=== PATIENT | female | born 1995 | race Caucasian/White ===

== ENCOUNTER 2018-12-10 14:40 | Inpatient (IN) | payer SELFPAY ==
--- NOTE | 2018-12-10 14:50 | PDOC ---
Rapid Medical Evaluation Time Seen by Provider: 12/10/18 14:49 Medical Evaluation: 12/10/18 14:49 I have performed a brief in-person evaluation of this patient. The patient presents with a chief complaint of: abdominal pain Pertinent physical exam findings:stable and in NAD, non-focal I have ordered the following:labs, zofran The patient will proceed to the ED for further evaluation.
[2018-12-10] MEDS ORDERED: SODIUM CHLORIDE 1,000 ML IV STA (14:57)
[2018-12-10] MEDS ORDERED: ONDANSETRON 4 MG/2 ML VIAL IVPUSH ONE ×2 (14:59→17:04)
[2018-12-10] MEDS ORDERED: ONDANSETRON 4 MG/2 ML VIAL ONE ×2 (15:08→17:26)
[2018-12-10] MEDS ORDERED: MORPHINE SULFATE 2 MG/ML VIAL ONE (15:22)
[2018-12-10] MEDS ORDERED: morphine CARPU-JECT 2 MG/1 ML DISP.SYRIN IVPUSH ONE (15:24)
--- NOTE | 2018-12-10 15:24 | PDOC ---
History of Present Illness <Rogelio Padron - Last Filed: 12/10/18 21:33> - History of Present Illness Initial Comments: 23 year old female with PMH of cholecystectomy presenting with left flank pain with radiation to her back worsening over the past few weeks. Also admits to fevers, chills, nausea, and now vomiting. Her pain and symptoms all acutely worsened today. She has surgical history of two C sections. Also admits to dysuria over the same period of time. Denies chest pain, cough, SOB, or other symptoms. 12/10/18 18:44 <Becky Bingham - Last Filed: 12/11/18 20:35> - General Chief Complaint: Pain, Acute Stated Complaint: STOMACH PAIN Time Seen by Provider: 12/10/18 14:49 Past History <Rogelio Padron - Last Filed: 12/10/18 21:33> - Past Medical History COPD: No - Psycho Social/Smoking Cessation Hx Smoking History: Never smoked <Becky Bingham - Last Filed: 12/11/18 20:35> - Past Medical History Allergies/Adverse Reactions: Allergies Allergy/AdvReac Type Severity Reaction Status Date / Time No Known Allergies Allergy Verified 12/10/18 14:52 Home Medications: Ambulatory Orders NK [No Known Home Medication] 12/10/18 Review of Systems - Review of Systems Constitutional: Yes: Chills. No: Diaphoresis, Fever HEENTM: No: Blurred Vision, Tearing Respiratory: No: Cough, Orthopnea, Shortness of Breath Cardiac (ROS): No: Chest Pain, Edema, Irregular Heart Rate ABD/GI: Yes: Nausea, Vomiting. No: Diarrhea : Yes: Burning, Dysuria, Flank Pain. No: Discharge, Incontinence Musculoskeletal: No: Muscle Pain, Muscle Weakness Integumentary: No: Bruising, Erythema, Flushing, Lesions Neurological: No: Headache, Numbness, Paresthesia Hematologic/Lymphatic: No: Anemia, Blood Clots, Easy Bleeding <Becky Bingham - Last Filed: 12/11/18 20:35> *Physical Exam - Vital Signs Last Vital Signs Temp Pulse Resp BP Pulse Ox 98.8 F 105 H 20 115/63 96 12/10/18 18:54 12/10/18 17:39 12/10/18 17:39 12/10/18 17:39 12/10/18 17:39 <Rogelio Padron - Last Filed: 12/10/18 21:33> - Vital Signs Last Vital Signs Temp Pulse Resp BP Pulse Ox 99.7 F H 140 H 16 131/84 97 12/10/18 14:47 12/10/18 14:47 12/10/18 14:47 12/10/18 14:47 12/10/18 14:47 - Physical Exam General Appearance: Yes: Nourished, Appropriately Dressed, Apparent Distress, Mild Distress HEENT: positive: EOMI, KALLI, Normal ENT Inspection, Normal Voice Neck: positive: Trachea midline, Normal Thyroid, Supple. negative: Tender, Rigid Respiratory/Chest: positive: Lungs Clear, Normal Breath Sounds. negative: Chest Tender, Respiratory Distress, Accessory Muscle Use Cardiovascular: positive: Regular Rhythm, Tachycardia. negative: Regular Rate Female Pelvic Exam: positive: normal external exam, cervical os closed, vaginal bleeding. negative: normal adnexa (mild right adnexal tenderness), CMT, discharge, lesions Gastrointestinal/Abdominal: positive: Normal Bowel Sounds, Tender (left mid abdomen/ flank tenderness), Flat, Soft Musculoskeletal: positive: Normal Inspection, CVA Tenderness (left sided). negative: Decreased Range of Motion Extremity: positive: Normal Capillary Refill, Normal Inspection, Normal Range of Motion. negative: Tender Integumentary: positive: Normal Color, Dry, Warm Neurologic: positive: Fully Oriented, Alert, Normal Mood/Affect, Normal Response , Motor Strength 5/5 <Becky Bingham - Last Filed: 12/11/18 20:35> ED Treatment Course - LABORATORY CBC & Chemistry Diagram: 12/10/18 15:35 12/10/18 15:35 - ADDITIONAL ORDERS Additional order review: Laboratory Results 12/10/18 12/10/18 12/10/18 16:02 16:02 15:45 Sodium Potassium Chloride Carbon Dioxide Anion Gap BUN Creatinine Est GFR (CKD-EPI)AfAm Est GFR (CKD-EPI)NonAf Random Glucose Lactic Acid 1.2 Calcium Total Bilirubin AST ALT Alkaline Phosphatase Total Protein Albumin Lipase Serum , Qual Urine Color Yellow Urine Appearance Clear Urine pH 7.5 Ur Specific [place] 1.011 Urine Protein Negative Urine Glucose (UA) Negative Urine Ketones Negative Urine Blood 1+ H Urine Nitrite Negative Urine Bilirubin Negative Urine Urobilinogen 0.2 Ur Leukocyte Esterase Trace Urine WBC (Auto) 0 Urine RBC (Auto) 1 Urine Casts (Auto) 1 U Epithel Cells (Auto) 1.7 Urine Bacteria (Auto) 17.9 Urine HCG, Qual Negative 12/10/18 12/10/18 15:35 15:35 Sodium 141 Potassium 3.8 Chloride 108 H Carbon Dioxide 23 Anion Gap 10 BUN 8.2 Creatinine 0.4 L Est GFR (CKD-EPI)AfAm 170.15 Est GFR (CKD-EPI)NonAf 146.81 Random Glucose 88 Lactic Acid Calcium 9.4 Total Bilirubin 0.2 AST 20 ALT 17 Alkaline Phosphatase 78 Total Protein 8.0 Albumin 4.5 Lipase 108 Serum , Qual Negative Urine Color Urine Appearance Urine pH Ur Specific [place] Urine Protein Urine Glucose (UA) Urine Ketones Urine Blood Urine Nitrite Urine Bilirubin Urine Urobilinogen Ur Leukocyte Esterase Urine WBC (Auto) Urine RBC (Auto) Urine Casts (Auto) U Epithel Cells (Auto) Urine Bacteria (Auto) Urine HCG, Qual 12/10/18 15:35 RBC 4.27 MCV 84.1 MCHC 32.4 RDW 15.2 MPV 8.6 Neutrophils % 46.2 Lymphocytes % 45.0 H Monocytes % 7.2 Eosinophils % 1.4 Basophils % 0.2 - Medications Given in the ED: ED Medications Discontinued Medications Generic Name Dose Route Start Last Admin Trade Name Roberto PRN Reason Stop Dose Admin Acetaminophen 1,000 mg 12/10/18 15:42 12/10/18 15:57 Ofirmev Injection - IVPB 12/10/18 15:43 1,000 mg ONCE ONE Administration Sodium Chloride 1,000 mls @ 1,000 mls/hr 12/10/18 14:57 12/10/18 15:39 Normal Saline - IV 12/10/18 15:56 1,000 mls/hr ASDIR STA Administration Ceftriaxone Sodium 2,000 mg/ 50 mls @ 100 mls/hr 12/10/18 15:42 12/10/18 16: 13 Dextrose IVPB 12/10/18 16:11 100 mls/hr ONCE ONE Administration Ketorolac Tromethamine 15 mg 12/10/18 18:47 12/10/18 19:25 Toradol Injection - IVPUSH 12/10/18 18:48 15 mg ONCE ONE Administration Morphine Sulfate 2 mg 12/10/18 15:24 12/10/18 15:39 Morphine Injection - IVPUSH 12/10/18 15:25 2 mg ONCE ONE Administration Morphine Sulfate 4 mg 12/10/18 17:03 12/10/18 17:38 Morphine Injection - IVPUSH 12/10/18 17:04 4 mg ONCE ONE Administration Ondansetron HCl 4 mg 12/10/18 14:59 12/10/18 15:23 Zofran Injection IVPUSH 12/10/18 15:00 4 mg ONCE ONE Administration Ondansetron HCl 4 mg 12/10/18 17:04 12/10/18 17:38 Zofran Injection IVPUSH 12/10/18 17:05 4 mg ONCE ONE Administration <Rogelio Padron - Last Filed: 12/10/18 21:33> - LABORATORY CBC & Chemistry Diagram: 12/11/18 08:30 12/11/18 08:30 - Medications Given in the ED: ED Medications Discontinued Medications Generic Name Dose Route Start Last Admin Trade Name Roberto PRN Reason Stop Dose Admin Ondansetron HCl 4 mg 12/10/18 14:59 12/10/18 15:23 Zofran Injection IVPUSH 12/10/18 15:00 4 mg ONCE ONE Administration <Becky Bingham - Last Filed: 12/11/18 20:35> Medical Decision Making - Medical Decision Making 23 year old female with diffuse upper left quadrant and flank pain radiating to her back in the setting of two weeks of dysuria. Original though was that this was related to pyelonephritis given location of pain and fever. However, after additional morphine and negative CT, patient's pain was localized to left lower quadrant. Pelvic exam yielded right adnexal tenderness without any discharge, CMT, or other abnormality. TVUS demonstrating small cyst in right adnexa but normal left ovary. Given that patient is still experienced left flank pain, this is still concerning for clinical pyelo. Left adnexa was completely non tender. Will admit patient for clinical pyelonephritis. 12/10/18 19:45 <Becky Bingham - Last Filed: 12/11/18 20:35> Discharge - Discharge Information Problems reviewed: Yes - Admission Yes <Rogelio Padron - Last Filed: 12/10/18 21:33> <Ali,Khameinei - Last Filed: 12/11/18 20:35> - Discharge Information Clinical Impression/Diagnosis: Pyelonephritis
[2018-12-10] MEDS ORDERED: ACETAMINOPHEN 1000 MG/100 ML VIAL (NON FORMULARY) IVPB ONE (15:42)
[2018-12-10] MEDS ORDERED: CEFTRIAXONE 2,000 MG in DEXTROSE 5%-WATER - 50 ML IVPB ONE (15:42)
[2018-12-10] MEDS ORDERED: CEFTRIAXONE 2 GM/100 ML BAG IVPB ONE (15:50)
[2018-12-10] MEDS ORDERED: ACETAMINOPHEN INJECTION 100 ML IVPB ONE (15:50)
[2018-12-10 15:57] LABS: BASO % 0.2 % (0-2.0); EOS % 1.4 % (0-4.5); HEMATOCRIT 35.9 % (32.4-45.2); HEMOGLOBIN 11.6 GM/dL (10.7-15.3); MCH 27.2 pg (25.7-33.7); MCHC 32.4 g/dl (32.0-36.0); MEAN CELL VOLUME 84.1 fl (80-96); MEAN PLT VOLUME 8.6 fl (7.5-11.1); MONO % 7.2 % (3.8-10.2); NEUT % 46.2 % (42.8-82.8); PLATELET COUNT 263 K/MM3 (134-434); RBC 4.27 M/mm3 (3.60-5.2); RDW 15.2 % (11.6-15.6); WHITE BLOOD COUNT 4.9 K/mm3 (4.0-10.0)
--- NOTE | 2018-12-10 16:49 | PDOC ---
Attending Attestation - Resident Resident Name: OtiliaNidhilexus - ED Attending Attestation I have performed the following: I have examined & evaluated the patient, The case was reviewed & discussed with the resident, I agree w/resident's findings & plan, Exceptions are as noted - HPI HPI: 12/10/18 16:47 23-year-old female presents with fever and left sided flank pain for the past several days prior to arrival. Patient denies dysuria or hematuria. - Physicial Exam PE: 12/10/18 16:47 Patient is awake and alert, febrile and tachycardic in moderate distress. Normocephalic, atraumatic; mucous membranes dry; PERRLA, EOMI, no scleral icterus; CTA, RRR, tachycardic; abdomen soft, nontender, nondistended, positive's left CVA tenderness to palpation; - Medical Decision Making 12/10/18 16:48 Patient is a 23-year-old female who presents with signs and symptoms of acute pyelonephritis. Will obtain CBC/CMP/UA/urine cultures of blood culture. Will administer antipyretics, IV fluids and IV antibiotics. Will obtain CT of abdomen pelvis to evaluate for obstructing stone. Will reassess.
[2018-12-10 16:50] LABS: ALBUMIN 4.5 g/dl (3.4-5.0); BILIRUBIN,TOTAL 0.2 mg/dL (0.2-1); BLOOD UREA NITROGEN 8.2 mg/dL (7-18); CALCIUM 9.4 mg/dL (8.5-10.1); CREATININE 0.4 mg/dL (0.55-1.3); POTASSIUM 3.8 mmol/L (3.5-5.1)
[2018-12-10] MEDS ORDERED: morphine CARPU-JECT 4 MG/1 ML DISP.SYRIN IVPUSH ONE (17:03)
[2018-12-10 17:09] LABS: EPI CELLS 1.7 /HPF (0-5/HPF); HYALINE CASTS 1 /lpf (0-8); PH,URINE 7.5 (5.0-8.0); URINE APPEARANCE CLEAR; URINE BACTERIA 17.9 /hpf (NEGATIVE); URINE BILIRUBIN NEGATIVE (NEGATIVE); URINE COLOR YELLOW; URINE GLUCOSE (UA) NEGATIVE (NEGATIVE); URINE KETONE NEGATIVE (NEGATIVE); URINE LEUK ESTERASE TRACE (NEGATIVE); URINE NITRITE NEGATIVE (NEGATIVE); URINE PROTEIN NEGATIVE (NEGATIVE); URINE RBC 1 /hpf (0-4); URINE UROBILINOGEN 0.2 mg/dL (0.2-1.0); URINE WBC 0 /hpf (0-5)
[2018-12-10] MEDS ORDERED: morphine SULFATE 4 MG/ML VIAL ONE (17:26)
[2018-12-10] MEDS ORDERED: KETOROLAC TROMETHAMINE 15 MG/ML VIAL IVPUSH ONE (18:47)
[2018-12-10] MEDS ORDERED: KETOROLAC TROMETHAMINE 15 MG/ML VIAL ONE (19:13)
--- NOTE | 2018-12-10 21:08 | PN ---
Teaching Attending Note Name of Resident: Mary Ann Raygoza ATTENDING PHYSICIAN STATEMENT I saw and evaluated the patient. I reviewed the resident's note and discussed the case with the resident. I agree with the resident's findings and plan as documented. SUBJECTIVE: 23 year old female with PMH of cholecystectomy presenting with left flank pain with radiation to her back worsening over the past few weeks, associated with dysuria. Also admits to fevers, chills, nausea, and now vomiting. Her pain and symptoms all acutely worsened over last 24hrs. She has surgical history of two C sections. Denied any vaginal discharge, OBJECTIVE: Last Vital Signs Temp Pulse Resp BP Pulse Ox 98.8 F 105 H 20 115/63 96 12/10/18 18:54 12/10/18 17:39 12/10/18 17:39 12/10/18 17:39 12/10/18 17:39 gen -nad, nontoxic heent at, moist oral mucosa neck supple cv s1+s2+rrr chest clear ext- no edema Abnormal Lab Results 12/10/18 12/10/18 12/10/18 15:35 15:35 16:02 Lymphocytes % 45.0 H Chloride 108 H Creatinine 0.4 L Urine Blood 1+ H imaging reviewed trans/vag u/s - complex 2.3cm 1.3cm right ovarian cyst ASSESSMENT AND PLAN: Sepsis, tachycardia, low grade fever left flank pain suggestive of pyelonephritis although ct abdomen/pelvis not suggestive, only showed mild right hydronephrosis, right puj obstruction? UA without pyuria and lack of leukocytosis also are not c/w uti, however pt appears to have clinical improvement after rocephin. Blood and urine cx sent and pending. Incidental right complex ovarian cyst. -med/surg -c/w rocephin 1g iv q24hrs -f/u blood and urine cx -send urine GC/chlamydia NAAT -iv fluids -f/u official abd/pelvic ct read -dvt ppx
[2018-12-10] MEDS ORDERED: ACETAMINOPHEN 325 MG TABLET (FP) ONE (22:27)
[2018-12-10] MEDS: SODIUM CHLORIDE 1,000 ML IV SCH (22:31)
[2018-12-10] MEDS: ACETAMINOPHEN 325 MG TABLET (FP) PO PRN (22:31)
--- NOTE | 2018-12-10 23:41 | HP ---
CHIEF COMPLAINT: abdominal pain PCP: none HISTORY OF PRESENT ILLNESS: 23 y.o. F PMH cholecystectomy, 2x c-sections presenting with left sided abdominal pain x 2-3 days as well as dysuria x2 weeks. The patient says the pain started in her L flank and is now diffuse across Left abdomen, upper and lower quadrants, although most severe in LLQ. The pain radiates to her left back and is very sharp in nature. No alleviating/ exacerbating factors. Pt also states she has not had a bowel movement in 3 days. On ROS the patient endorses fevers and chills, nausea, and multiple episodes of NBNB vomiting x 1 day. Denies CP/ SOB/ myalgias/ MOORE/ hematuria/ vaginal discharge or bleeding/ hematochezia/ diarrhea. Denies sick contacts. ER course was notable for: (1) zofran 4mg, 1L NS (2) toradol 15mg IV, morphine 4mg IV, tylenol 1g IV (3)rocephin 2g IV Recent Travel: denies PAST MEDICAL HISTORY: as per hpi PAST SURGICAL HISTORY: 2x c-sxn, cholecystectomy OBGYN History: . LMP started 12/08/18 currently menstruating. Menstruation usually lasts 1 week. Denies menorrhagia. Sexually active w/ 1 partner does not use contraceptive methods (OCPs/ IUD/ condoms). Never tested for STDs in the past. Social History: lives w/ and 2 children Smoking: denies Alcohol: denies Drugs: denies Allergies No Known Allergies Allergy (Verified 12/10/18 14:52) Family History: Liver CA in maternal grandmother HOME MEDICATIONS: Home Medications Medication Instructions Recorded NK [No Known Home Medication] 12/10/18 PHYSICAL EXAMINATION Vital Signs - 24 hr 12/10/18 12/10/18 12/10/18 14:47 15:30 16:07 Temperature 99.7 F H Pulse Rate 140 H Pulse Rate [ 84 Left Radial] Respiratory 16 22 H Rate Blood Pressure 131/84 Blood Pressure 121/74 [Left Arm] O2 Sat by Pulse 97 100 100 Oximetry (%) 12/10/18 12/10/18 17:39 18:54 Temperature 98.8 F Pulse Rate Pulse Rate [ 105 H Left Radial] Respiratory 20 Rate Blood Pressure Blood Pressure 115/63 [Left Arm] O2 Sat by Pulse 96 Oximetry (%) GENERAL: AOx3. In some distress d/t pain and vomiting. HEENT: NCAT. PERRLA. No scleral icterus. LUNGS: CTABL no w/r/r. HEART: RRR no m/r/g. ABDOMEN: TTP LLQ, LUQ, suprapubic. + guarding. No rebound tenderness. Negative mcburneys & murphys signs. No organomegaly. Soft, nondistended. MUSCULOSKELETAL: + left sided CVA tenderness. No R sided CVA tenderness. EXTR: 2+ pulses palpated b/l UE & LE. No peripheral edema. Laboratory Results - last 24 hr 12/10/18 12/10/18 12/10/18 15:35 15:35 15:35 WBC 4.9 RBC 4.27 Hgb 11.6 Hct 35.9 MCV 84.1 MCH 27.2 MCHC 32.4 RDW 15.2 Plt Count 263 MPV 8.6 Absolute Neuts (auto) 2.3 Neutrophils % 46.2 Lymphocytes % 45.0 H Monocytes % 7.2 Eosinophils % 1.4 Basophils % 0.2 Nucleated RBC % 0 Sodium 141 Potassium 3.8 Chloride 108 H Carbon Dioxide 23 Anion Gap 10 BUN 8.2 Creatinine 0.4 L Est GFR (CKD-EPI)AfAm 170.15 Est GFR (CKD-EPI)NonAf 146.81 Random Glucose 88 Lactic Acid Calcium 9.4 Total Bilirubin 0.2 AST 20 ALT 17 Alkaline Phosphatase 78 Total Protein 8.0 Albumin 4.5 Lipase 108 Serum , Qual Negative Urine Color Urine Appearance Urine pH Ur Specific [place] Urine Protein Urine Glucose (UA) Urine Ketones Urine Blood Urine Nitrite Urine Bilirubin Urine Urobilinogen Ur Leukocyte Esterase Urine WBC (Auto) Urine RBC (Auto) Urine Casts (Auto) U Epithel Cells (Auto) Urine Bacteria (Auto) Urine HCG, Qual 12/10/18 12/10/18 12/10/18 15:45 16:02 16:02 WBC RBC Hgb Hct MCV MCH MCHC RDW Plt Count MPV Absolute Neuts (auto) Neutrophils % Lymphocytes % Monocytes % Eosinophils % Basophils % Nucleated RBC % Sodium Potassium Chloride Carbon Dioxide Anion Gap BUN Creatinine Est GFR (CKD-EPI)AfAm Est GFR (CKD-EPI)NonAf Random Glucose Lactic Acid 1.2 Calcium Total Bilirubin AST ALT Alkaline Phosphatase Total Protein Albumin Lipase Serum , Qual Urine Color Yellow Urine Appearance Clear Urine pH 7.5 Ur Specific [place] 1.011 Urine Protein Negative Urine Glucose (UA) Negative Urine Ketones Negative Urine Blood 1+ H Urine Nitrite Negative Urine Bilirubin Negative Urine Urobilinogen 0.2 Ur Leukocyte Esterase Trace Urine WBC (Auto) 0 Urine RBC (Auto) 1 Urine Casts (Auto) 1 U Epithel Cells (Auto) 1.7 Urine Bacteria (Auto) 17.9 Urine HCG, Qual Negative Imaging: CT abd/pel: No evidence of urolithiasis or left hydronephrosis. Minimal to mild right hydronephrosis is noted possibly on the basis of a UPJ obstruction. Additional evaluation utilizing a diuretic renal scan may be considered. Alternatively correlate with 6 month follow-up sonography to evaluate stability. Status post cholecystectomy. Mild colonic diverticulosis. TVUS: Complex 2.3 x 1.3 cm right ovarian cyst. ASSESSMENT/PLAN: 23 y.o. F PMH cholecystectomy, 2x c-sections presenting with L abdominal pain and dysuria. #Sepsis 2/2 acute pyelonephritis -Tachycardic to 140s, 99.7F tmax. No leukocytosis. -CT abd/pel resulted appreciated; minimum/ mild R hydronephrosis, possible URJ obstruction -S/p 1 dose 2g rocephin; c/w rocephin 1g daily -IVF -Tylenol PRN for pain control -F/u blood & urine cultures -Chlamydia/ gonorrhea testing, HIV if pt agrees -Monitor vitals #R ovarian cyst -stable, no torsion -F/u with PARKING ENFORCEMENT TECHNICIAN outpatient #FEN -IVF: NS @ 75mL/ hr -Trend lytes -Regular diet #DVT PPX -LVX 40mg SQ daily Visit type - Emergency Visit Emergency Visit: Yes ED Registration Date: 12/10/18 Care time: The patient presented to the Emergency Department on the above date and was hospitalized for further evaluation of their emergent condition. - New Patient This patient is new to me today: Yes Date on this admission: 12/11/18 - Critical Care Critical Care patient: No ATTENDING PHYSICIAN STATEMENT I saw and evaluated the patient. I reviewed the resident's note and discussed the case with the resident. I agree with the resident's findings and plan as documented. SUBJECTIVE: OBJECTIVE: ASSESSMENT AND PLAN:
[2018-12-11] MEDS ORDERED: SENNOSIDES 8.6MG TABLET (FP) PO ONE (00:16)
[2018-12-11 06:43] VITALS: BMI 21.4
[2018-12-11] MEDS ORDERED: DEXTROSE 5%-WATER - 50 ML IVPB ONE (09:42)
[2018-12-11] MEDS ORDERED: cefTRIAXone SODIUM 1 GM VIAL ONE (09:42)
[2018-12-11 09:45] LABS: HEMATOCRIT 28.8 % (32.4-45.2); HEMOGLOBIN 9.5 GM/dL (10.7-15.3); MCH 27.8 pg (25.7-33.7); MCHC 33.1 g/dl (32.0-36.0); MEAN CELL VOLUME 83.9 fl (80-96); MEAN PLT VOLUME 8.7 fl (7.5-11.1); PLATELET COUNT 216 K/MM3 (134-434); RBC 3.43 M/mm3 (3.60-5.2); RDW 15.3 % (11.6-15.6); WHITE BLOOD COUNT 3.2 K/mm3 (4.0-10.0)
[2018-12-11 10:15] LABS: ALBUMIN 3.4 g/dl (3.4-5.0); BILIRUBIN,TOTAL 0.4 mg/dL (0.2-1); BLOOD UREA NITROGEN 8.4 mg/dL (7-18); CALCIUM 7.8 mg/dL (8.5-10.1); CREATININE 0.4 mg/dL (0.55-1.3); MAGNESIUM 2.2 mg/dL (1.8-2.4); PHOSPHOROUS 3.1 mg/dL (2.5-4.9); POTASSIUM 3.8 mmol/L (3.5-5.1); TOT PROT 6.2 g/dl (6.4-8.2)
[2018-12-11] MEDS: SODIUM CHLORIDE 1,000 ML IV SCH (10:41)
[2018-12-11] MEDS: ENOXAPARIN NA (PORCINE) 40 MG/0.4 ML DISP.SYRIN SQ SCH (10:47)
[2018-12-11] MEDS: CEFTRIAXONE 1 GM in DEXTROSE 5%-WATER - 50 ML IVPB SCH (10:47)
[2018-12-11] MEDS: ONDANSETRON 4 MG/2 ML VIAL IVPUSH PRN ×2 (10:47→20:49)
--- NOTE | 2018-12-11 13:18 | EKG ---
Test Reason : Blood Pressure : / mmHG Vent. Rate : 081 BPM Atrial Rate : 081 BPM P-R Int : 152 ms QRS Dur : 090 ms QT Int : 372 ms P-R-T Axes : 079 054 042 degrees QTc Int : 432 ms NORMAL SINUS RHYTHM NONSPECIFIC T WAVE ABNORMALITY ABNORMAL ECG NO PREVIOUS ECGS AVAILABLE Confirmed by JOLIE SULLIVAN, EMY ([id number]) on 12/11/2018 1:18:07 PM Referred By: Confirmed By:EMY DAVE MD
--- NOTE | 2018-12-11 16:10 | PN ---
Teaching Attending Note Name of Resident: Sinan Art ATTENDING PHYSICIAN STATEMENT I saw and evaluated the patient. I reviewed the resident's note and discussed the case with the resident. I agree with the resident's findings and plan as documented with exceptions below. SUBJECTIVE: patient seen and examined, feels better, tolerating diet well. OBJECTIVE: Vital Signs Period Temp Pulse Resp BP Sys/Garcia Pulse Ox Last 24 Hr 98.3 F-98.8 F 72-105 18-20 95-115/54-63 96-99 Intake & Output 12/08/18 12/09/18 12/10/18 12/11/18 23:59 23:59 23:59 23:59 Intake Total 450 Balance 450 Weight 110 lb 117 lb 3.2 oz General: sitting in bed, no acute distress CVS:S1S2 regular Chest: CTAB, no rales or wheezing Abdomen:Soft, NT, no suprapubic tenderness, pos left CVA tenderness Extremities: no edema Active Medications Acetaminophen (Tylenol -) 650 mg PO Q4H PRN PRN Reason: PAIN LEVEL 6-10 Last Admin: 12/10/18 22:31 Dose: 650 mg Enoxaparin Sodium (Lovenox -) 40 mg SQ DAILY JESUS Last Admin: 12/11/18 10:47 Dose: 40 mg Sodium Chloride (Normal Saline -) 1,000 mls @ 75 mls/hr IV ASDIR JESUS Last Admin: 12/11/18 10:41 Dose: 75 mls/hr Ceftriaxone Sodium 1 gm/ (Dextrose) 50 mls @ 100 mls/hr IVPB DAILY JESUS Last Admin: 12/11/18 10:47 Dose: 100 mls/hr Ondansetron HCl (Zofran Injection) 4 mg IVPUSH Q4H PRN PRN Reason: NAUSEA Last Admin: 12/11/18 10:47 Dose: 4 mg Laboratory Results - last 24 hr 12/10/18 12/10/18 12/10/18 15:35 15:35 15:45 WBC RBC Hgb Hct MCV MCH MCHC RDW Plt Count MPV Sodium 141 Potassium 3.8 Chloride 108 H Carbon Dioxide 23 Anion Gap 10 BUN 8.2 Creatinine 0.4 L Est GFR (CKD-EPI)AfAm 170.15 Est GFR (CKD-EPI)NonAf 146.81 Random Glucose 88 Lactic Acid 1.2 Calcium 9.4 Phosphorus Magnesium 2.0 Total Bilirubin 0.2 AST 20 ALT 17 Alkaline Phosphatase 78 Total Protein 8.0 Albumin 4.5 Lipase 108 Serum , Qual Negative Urine Color Urine Appearance Urine pH Ur Specific [place] Urine Protein Urine Glucose (UA) Urine Ketones Urine Blood Urine Nitrite Urine Bilirubin Urine Urobilinogen Ur Leukocyte Esterase Urine WBC (Auto) Urine RBC (Auto) Urine Casts (Auto) U Epithel Cells (Auto) Urine Bacteria (Auto) Urine HCG, Qual 12/10/18 12/10/18 12/11/18 16:02 16:02 08:30 WBC 3.2 L RBC 3.43 L Hgb 9.5 L Hct 28.8 L D MCV 83.9 MCH 27.8 MCHC 33.1 RDW 15.3 Plt Count 216 MPV 8.7 Sodium Potassium Chloride Carbon Dioxide Anion Gap BUN Creatinine Est GFR (CKD-EPI)AfAm Est GFR (CKD-EPI)NonAf Random Glucose Lactic Acid Calcium Phosphorus Magnesium Total Bilirubin AST ALT Alkaline Phosphatase Total Protein Albumin Lipase Serum , Qual Urine Color Yellow Urine Appearance Clear Urine pH 7.5 Ur Specific [place] 1.011 Urine Protein Negative Urine Glucose (UA) Negative Urine Ketones Negative Urine Blood 1+ H Urine Nitrite Negative Urine Bilirubin Negative Urine Urobilinogen 0.2 Ur Leukocyte Esterase Trace Urine WBC (Auto) 0 Urine RBC (Auto) 1 Urine Casts (Auto) 1 U Epithel Cells (Auto) 1.7 Urine Bacteria (Auto) 17.9 Urine HCG, Qual Negative 12/11/18 08:30 WBC RBC Hgb Hct MCV MCH MCHC RDW Plt Count MPV Sodium 142 Potassium 3.8 Chloride 112 H Carbon Dioxide 23 Anion Gap 7 L BUN 8.4 Creatinine 0.4 L Est GFR (CKD-EPI)AfAm 170.15 Est GFR (CKD-EPI)NonAf 146.81 Random Glucose 74 Lactic Acid Calcium 7.8 L Phosphorus 3.1 Magnesium 2.2 Total Bilirubin 0.4 AST 99 H ALT 135 H Alkaline Phosphatase 92 Total Protein 6.2 L Albumin 3.4 Lipase Serum , Qual Urine Color Urine Appearance Urine pH Ur Specific [place] Urine Protein Urine Glucose (UA) Urine Ketones Urine Blood Urine Nitrite Urine Bilirubin Urine Urobilinogen Ur Leukocyte Esterase Urine WBC (Auto) Urine RBC (Auto) Urine Casts (Auto) U Epithel Cells (Auto) Urine Bacteria (Auto) Urine HCG, Qual Microbiology 12/10/18 15:45 Blood - Peripheral Venous Blood Culture - Preliminary NO GROWTH OBTAINED AFTER 24 HOURS, INCUBATION TO CONTINUE FOR 4 DAYS. 12/10/18 15:35 Blood - Peripheral Venous Blood Culture - Preliminary NO GROWTH OBTAINED AFTER 24 HOURS, INCUBATION TO CONTINUE FOR 4 DAYS. ASSESSMENT AND PLAN: 23 yof with PMHx of CCY, X 2 admitted with dysuria, left sided abdominal pain -Suspected complicated UTI with left pyelonephritis -Complex ovarian cyst -Right hydronephrosis Plan: Ceftriaxone, follow up blood/urine cx. Renal/Pelvic [facility] Case Manager input. Dispo dc in 24 hours if doing well and no concerns. Discussed with patient and at bedside in detail, all questions answered.
--- NOTE | 2018-12-11 16:27 | PN ---
Physical Exam: SUBJECTIVE: Patient seen and examined ROXANNA. Endorses 6/10 Left-sided flank pain radiating to the back; overall improved pain. Has nausea, no vomiting. OBJECTIVE: Vital Signs Period Temp Pulse Resp BP Sys/Garcia Pulse Ox Last 24 Hr 98.3 F-98.8 F 72-105 18-20 95-115/54-63 96-99 GENERAL: The patient is awake, alert, in no acute distress. HEAD: Normal with no signs of trauma. EYES: sclera anicteric, conjunctiva clear. ENT: Ears normal, nares patent, moist mucous membranes. NECK: Trachea midline, full range of motion, supple. LUNGS: Breath sounds equal, clear to auscultation bilaterally, no wheezes, no crackles, no accessory muscle use. HEART: Regular rate and rhythm, S1, S2 without murmur, rub or gallop. ABDOMEN: Soft, ND, no active guarding. Tenderness with deep palpitation of RLQ, LLQ, LUQ; worst in L-side. Mild tenderness with Left Llyod. Neg Right Llyod EXTREMITIES: 2+ pulses, warm, well-perfused, no edema. NEUROLOGICAL: Normal speech SKIN: Warm, dry, normal turgor Laboratory Results - last 24 hr 12/10/18 12/10/18 12/10/18 15:35 15:35 15:45 WBC RBC Hgb Hct MCV MCH MCHC RDW Plt Count MPV Sodium 141 Potassium 3.8 Chloride 108 H Carbon Dioxide 23 Anion Gap 10 BUN 8.2 Creatinine 0.4 L Est GFR (CKD-EPI)AfAm 170.15 Est GFR (CKD-EPI)NonAf 146.81 Random Glucose 88 Lactic Acid 1.2 Calcium 9.4 Phosphorus Magnesium 2.0 Total Bilirubin 0.2 AST 20 ALT 17 Alkaline Phosphatase 78 Total Protein 8.0 Albumin 4.5 Lipase 108 Serum , Qual Negative Urine Color Urine Appearance Urine pH Ur Specific [place] Urine Protein Urine Glucose (UA) Urine Ketones Urine Blood Urine Nitrite Urine Bilirubin Urine Urobilinogen Ur Leukocyte Esterase Urine WBC (Auto) Urine RBC (Auto) Urine Casts (Auto) U Epithel Cells (Auto) Urine Bacteria (Auto) Urine HCG, Qual 12/10/18 12/10/18 12/11/18 16:02 16:02 08:30 WBC 3.2 L RBC 3.43 L Hgb 9.5 L Hct 28.8 L D MCV 83.9 MCH 27.8 MCHC 33.1 RDW 15.3 Plt Count 216 MPV 8.7 Sodium Potassium Chloride Carbon Dioxide Anion Gap BUN Creatinine Est GFR (CKD-EPI)AfAm Est GFR (CKD-EPI)NonAf Random Glucose Lactic Acid Calcium Phosphorus Magnesium Total Bilirubin AST ALT Alkaline Phosphatase Total Protein Albumin Lipase Serum , Qual Urine Color Yellow Urine Appearance Clear Urine pH 7.5 Ur Specific [place] 1.011 Urine Protein Negative Urine Glucose (UA) Negative Urine Ketones Negative Urine Blood 1+ H Urine Nitrite Negative Urine Bilirubin Negative Urine Urobilinogen 0.2 Ur Leukocyte Esterase Trace Urine WBC (Auto) 0 Urine RBC (Auto) 1 Urine Casts (Auto) 1 U Epithel Cells (Auto) 1.7 Urine Bacteria (Auto) 17.9 Urine HCG, Qual Negative 12/11/18 08:30 WBC RBC Hgb Hct MCV MCH MCHC RDW Plt Count MPV Sodium 142 Potassium 3.8 Chloride 112 H Carbon Dioxide 23 Anion Gap 7 L BUN 8.4 Creatinine 0.4 L Est GFR (CKD-EPI)AfAm 170.15 Est GFR (CKD-EPI)NonAf 146.81 Random Glucose 74 Lactic Acid Calcium 7.8 L Phosphorus 3.1 Magnesium 2.2 Total Bilirubin 0.4 AST 99 H ALT 135 H Alkaline Phosphatase 92 Total Protein 6.2 L Albumin 3.4 Lipase Serum , Qual Urine Color Urine Appearance Urine pH Ur Specific [place] Urine Protein Urine Glucose (UA) Urine Ketones Urine Blood Urine Nitrite Urine Bilirubin Urine Urobilinogen Ur Leukocyte Esterase Urine WBC (Auto) Urine RBC (Auto) Urine Casts (Auto) U Epithel Cells (Auto) Urine Bacteria (Auto) Urine HCG, Qual Active Medications Generic Name Dose Route Start Last Admin Trade Name Freq PRN Reason Stop Dose Admin Acetaminophen 650 mg 12/10/18 22:09 12/10/18 22:31 Tylenol - PO 650 mg Q4H PRN Administration PAIN LEVEL 6-10 Enoxaparin Sodium 40 mg 12/11/18 10:00 12/11/18 10:47 Lovenox - SQ 40 mg DAILY JESUS Administration Sodium Chloride 1,000 mls @ 75 mls/hr 12/10/18 22:15 12/11/18 10:41 Normal Saline - IV 75 mls/hr ASDIR JESUS Administration Ceftriaxone Sodium 1 gm/ 50 mls @ 100 mls/hr 12/11/18 10:00 12/11/18 10:47 Dextrose IVPB 100 mls/hr DAILY JESUS Administration Ondansetron HCl 4 mg 12/11/18 01:46 12/11/18 10:47 Zofran Injection IVPUSH 4 mg Q4H PRN Administration NAUSEA Vital Signs Temp 98.3 F 12/11/18 05:55 Pulse 79 12/11/18 05:55 Resp 18 12/11/18 05:55 BP 95/54 L 12/11/18 05:55 Pulse Ox 98 12/11/18 04:00 Intake & Output 12/10/18 12/11/18 12/11/18 23:59 11:59 23:59 Intake Total 450 Balance 450 Weight 49.895 kg 53.161 kg Intake: IV 450 Normal Saline - 1,000 ml 450 @ 75 mls/hr IV ASDIR JESUS Rx#:[id number] Other: Voiding Method Bedpan Toilet Height 5 ft 2 in 5 ft 2 in Body Mass Index (BMI) 20.1 21.4 Weight Measurement Method Standing Scale ASSESSMENT/PLAN: 23 y.o. F PMH cholecystectomy, 2x c-sections presenting with L abdominal pain and dysuria. #Sepsis 2/2 acute pyelonephritis > CT A/P(12/10/18): Left kidney w/o hydro or urolithiasis. Right kidney w/ mild hydro, possible UPJ obstruction. S/p cholecystectomy. Diverticulosis > TVUS(12/10/18): complex 2.3 x 1.3cm Right ovarian cyst > Tachycardic to 140s, 99.7F tmax. No leukocytosis -- resolving > BCX(12/10/18): NGTD > UCX(12/10/18): NGTD > UA(12/10/18): blood 1+, neg LE, neg nitrite, WBC 0 -S/p 1 dose 2g rocephin; -c/w rocephin 1g daily -Chlamydia/gonorrhea --pending -Monitor vitals #Complex R ovarian cyst -stable, no torsion -broth setter consult #FEN -IVF: NS @ 75mL/hr -Trend lytes -Regular diet #DVT PPX -LVX 40mg SQ daily Visit type - Emergency Visit Emergency Visit: No - New Patient This patient is new to me today: No - Critical Care Critical Care patient: No ATTENDING PHYSICIAN STATEMENT I saw and evaluated the patient. I reviewed the resident's note and discussed the case with the resident. I agree with the resident's findings and plan as documented. SUBJECTIVE: OBJECTIVE: ASSESSMENT AND PLAN:
[2018-12-11] MEDS: ACETAMINOPHEN 325 MG TABLET (FP) PO PRN (19:32)
[2018-12-12] MEDS: SODIUM CHLORIDE 1,000 ML IV SCH (03:21)
[2018-12-12] MEDS ORDERED: cefTRIAXone SODIUM 1 GM VIAL ONE (10:20)
[2018-12-12] MEDS ORDERED: DEXTROSE 5%-WATER - 50 ML IVPB ONE (10:20)
[2018-12-12] MEDS: ENOXAPARIN NA (PORCINE) 40 MG/0.4 ML DISP.SYRIN SQ SCH (10:37)
[2018-12-12] MEDS: CEFTRIAXONE 1 GM in DEXTROSE 5%-WATER - 50 ML IVPB SCH (10:37)
[2018-12-12] MEDS: ACETAMINOPHEN 325 MG TABLET (FP) PO PRN (12:37)
[2018-12-12 14:56] VITALS: BP 100/61; PULSE 85; TEMP 98.5
--- NOTE | 2018-12-12 15:13 | PN ---
Teaching Attending Note Name of Resident: Sinan Art ATTENDING PHYSICIAN STATEMENT I saw and evaluated the patient. I reviewed the resident's note and discussed the case with the resident. I agree with the resident's findings and plan as documented with exceptions below. SUBJECTIVE: Patient seen and examined, feels better, no pain or concerns. OBJECTIVE: Vital Signs Period Temp Pulse Resp BP Sys/Garcia Pulse Ox Last 24 Hr 98.2 F-98.7 F 74-88 16-20 89-153/47-104 99-99 Intake & Output 12/09/18 12/10/18 12/11/18 12/12/18 23:59 23:59 23:59 23:59 Intake Total 1200 1500 Balance 1200 1500 Weight 110 lb 117 lb 3.2 oz 117 lb General: sitting in chair, no acute distress chest: CTAb, no rales or wheezing Abdomen: soft, NT, no suprapubic or CVA tenderness today Extremities: no edema Home Medications Medication Instructions Recorded Amoxicillin - [Amoxicillin 500mg 500 mg PO TID #21 capsule 12/12/18 Capsule -] Renal/pelvic US results noted Microbiology 12/10/18 16:02 Urine - Urine Clean Catch Urine Culture - Preliminary Group D Strep Or Entero Coccus 12/10/18 15:45 Blood - Peripheral Venous Blood Culture - Preliminary NO GROWTH OBTAINED AFTER 24 HOURS, INCUBATION TO CONTINUE FOR 4 DAYS. 12/10/18 15:35 Blood - Peripheral Venous Blood Culture - Preliminary NO GROWTH OBTAINED AFTER 24 HOURS, INCUBATION TO CONTINUE FOR 4 DAYS. 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 Urine cx with gp d strep, overall presentation, exam and imaging make pyelonephritis less likely. Dc on PO amoxicillin for 1 week Plan discussed with patient and in detail, all questions answered.
--- NOTE | 2018-12-12 15:18 | DS ---
Physical Exam: SUBJECTIVE: Patient seen and examined OBJECTIVE: Vital Signs Period Temp Pulse Resp BP Sys/Garcia Pulse Ox Last 24 Hr 98.2 F-98.7 F 74-88 16-20 89-153/47-104 99-99 PHYSICAL EXAM GENERAL: The patient is awake, alert, and fully oriented, in no acute distress. HEAD: Normal with no signs of trauma. EYES: PERRL, extraocular movements intact, sclera anicteric, conjunctiva clear. ENT: Ears normal, nares patent, oropharynx clear without exudates, moist mucous membranes. NECK: Trachea midline, full range of motion, supple. LUNGS: Breath sounds equal, clear to auscultation bilaterally, no wheezes, no crackles, no accessory muscle use. HEART: Regular rate and rhythm, S1, S2 without murmur, rub or gallop. ABDOMEN: Soft, nontender, nondistended, normoactive bowel sounds, no guarding, no rebound, no hepatosplenomegaly, no masses. EXTREMITIES: 2+ pulses, warm, well-perfused, no edema. NEUROLOGICAL: Cranial nerves II through XII grossly intact. Normal speech, gait not observed. PSYCH: Normal mood, normal affect. SKIN: Warm, dry, normal turgor, no rashes or lesions noted. LABS HOSPITAL COURSE: Date of Admission:12/10/18 Date of Discharge: 12/12/18 Discharge Summary Problems reviewed: Yes Reason For Visit: PYELONEPHRITIS Current Active Problems Pyelonephritis (Acute) Condition: Stable - Instructions Diet, Activity, Other Instructions: You were evaluated in the hospital for Left-sided abdominal pain. Labwork was suggestive of a urinary infection. You were treated with an antibiotic. Please follow-up with the physicians below within 1-2weeks: - Urologist(Dr Almazan): to discuss the incidental mild enlargement of your Right kidney, discuss follow-up imaging as necessary - Gear Changer(Dr Rodriguez): to discuss your 2.3cm x 1.3cm Right ovarian cyst - PCP(Dr Pires) to establish care with a Primary Care Physician and repeat labwork for your low hemoglobin, liver enzymes, and followup on the results of your STD screening Medications: -NEW medications: --amoxicillin 500mg, three times daily for 7 days Additional instructions: -resume a normal diet, stay hydrated -resume all normal activity as tolerated -can take over the counter stool softeners for constipation -You will need to have repeat imaging of your kidneys done to ensure resolution of the hydronephrosis Please seek immediate medical evaluation or go to the Emergency Department if you experience: - severe, worsening abdominal pain or back pain - uncontrolled nausea, vomiting - fever, chills or any new concerns Referrals: Jose Almazan MD [Staff Physician] - Saroj Rodriguez MD [Staff Physician] - Mahi Pires MD [Staff Physician] - Disposition: HOME - Home Medications Comprehensive Discharge Medication List: Ambulatory Orders Amoxicillin - [Amoxicillin 500mg Capsule -] 500 mg PO TID #21 capsule 12/12/18 ATTENDING PHYSICIAN STATEMENT I saw and evaluated the patient. I reviewed the resident's note and discussed the case with the resident. I agree with the resident's findings and plan as documented. SUBJECTIVE: OBJECTIVE: ASSESSMENT AND PLAN:
== END 2018-12-12 16:35 | disposition home or self-care (01) | DRG 463 ==
LOC: EDBD 14:40 → JER 14:40 → JERBED 20:58 → J5S 12-11 00:28
PROVIDERS: ADMIT Internal Medicine; ATTEND Hospitalist
DX: N39.0 Urinary tract infection, site not specified (principal); R50.9 Fever, unspecified; R00.0 Tachycardia, unspecified; N83.291 Other ovarian cyst, right side; B95.1 Streptococcus, group B, as the cause of diseases classified elsewhere; N13.30 Unspecified hydronephrosis
CPT/HCPCS: 36415; 74176-TC; 76775-TC; 76830-TC; 76856-TC; 80053; 81003; 83605; 83690; 83735; 84100; 84703; 85025; 85027; 87040; 87086; 87186; 87491; 87591; 87661; 93005; 93010; 99285-25; J0131; J7030